=== PATIENT | female | born 1995 | race Two or more races ===

== ENCOUNTER 2024-08-18 11:17 | Outpatient (CLI) | payer MEDICAID, SELFPAY ==
--- NOTE | 2024-08-18 11:30 | CRLHL7_ITS ---
For Patients: As a result of the Century Cures Act, medical imaging exams and procedure reports are released immediately into your electronic medical record. You may view this report before your referring provider. If you have questions, please contact your health care provider. OB ULTRASOUND LESS THAN 14 WEEKS, 08/18/2024 CLINICAL HISTORY: Dating and viability. COMPARISON: None. TECHNIQUE: Real time pringle scale imaging of the fetus was performed transvaginal. FINDINGS: LMP: 06/06/2024. DALY by LMP: 03/13/2025. GA: 10 weeks 3 days. IMAGING: TV. CRL: 1.1 cm, 7 weeks 2 days. FHR: 152 bpm. GEST SAC: 2.1 cm, appears within normal limits. YOLK SAC: 2.4 mm, appears within normal limits. RIGHT OV: 2.7 x 1.4 x 1.8 cm. LEFT OV: 4.3 x 2.3 x 2.3 cm. IMPRESSION: 1. Single living intrauterine measuring 7 weeks 2 days and sonographic due date 04/04/2025. 2. Subchorionic hemorrhage measures 1.3 x 0.5 x 0.5 cm. Anival Bush M.D. Diagnostic Radiologist [email or web address] Transcribed: 12:39 pm DW/Dictated by: Anival Bush MD @ 08/18/2024 12:25:00 PM (Electronically Signed)
== END 2024-08-18 11:18 | disposition home or self-care (01) ==
LOC: US 11:20
PROVIDERS: Visit Provider Advanced Practice Midwife
DX: Z34.91 Encounter for supervision of normal pregnancy, unspecified, first trimester (principal); O20.9 Hemorrhage in early pregnancy, unspecified; Z3A.10 10 weeks gestation of pregnancy
CPT/HCPCS: 76817

== ENCOUNTER 2024-08-18 13:42 | Outpatient (CLI) | payer MEDICAID, SELFPAY | END 2024-08-18 13:43 | disposition home or self-care (01) | PROVIDERS: Visit Provider Advanced Practice Midwife | DX: Z34.81 Encounter for supervision of other normal pregnancy, first trimester (principal); Z67.10 Type A blood, Rh positive | CPT/HCPCS: 83020; 83021; 85660; 86592; 86703; 86704; 86706; 86762; 86787; 86803; 86850; 86900; 86901; 87086; 87340 ==

== ENCOUNTER 2024-09-15 12:13 | Outpatient (CLI) | payer MEDICAID, SELFPAY ==
[2024-09-15 16:29] LABS: Chlamydia DNA Amplified* NOT DETECTED (No Detected); GC DNA Amplified* NOT DETECTED (No Detected)
[2024-09-21 10:32] LABS: HPV Source Cervix; HPV, High Risk by TMA Not Detected
== END 2024-09-15 12:14 | disposition home or self-care (01) ==
PROVIDERS: Visit Provider Obstetrics & Gynecology
DX: Z34.81 Encounter for supervision of other normal pregnancy, first trimester (principal)
CPT/HCPCS: 81511; 87491; 87591; 87624; 87625; 88141; 88142

== ENCOUNTER 2024-10-11 10:32 | Outpatient (CLI) | payer MEDICAID, SELFPAY | END 2024-10-11 10:33 | disposition home or self-care (01) | LOC: NFLDREF 10-14 10:07 | PROVIDERS: Visit Provider Obstetrics & Gynecology | DX: Z34.92 Encounter for supervision of normal pregnancy, unspecified, second trimester (principal); Z3A.15 15 weeks gestation of pregnancy | CPT/HCPCS: 81511 ==

== ENCOUNTER 2024-11-08 11:01 | Outpatient (CLI) | payer MEDICAID, SELFPAY ==
--- NOTE | 2024-11-08 11:15 | CRLHL7_ITS ---
For Patients: As a result of the Century Cures Act, medical imaging exams and procedure reports are released immediately into your electronic medical record. You may view this report before your referring provider. If you have questions, please contact your health care provider. OBSTETRICAL ULTRASOUND ??? ANATOMY SURVEY, 11/08/2024 INDICATION: anatomy survey. CLINICAL HISTORY: DALY by ultrasound: 04/04/2025 Gestational age: 19 weeks 0 days TECHNIQUE: Real-time pringle-scale transabdominal imaging of the fetus was performed. PREVIOUS ULTRASOUND: 08/18/2024 FINDINGS: position: Raymundo breech Cervix: Visualized Technique: Transabdominal Length of closed cervix: 4.1 cm Placenta position: Anterior Technique: Transabdominal Placenta tip to internal os: 4.4 cm Umbilical cord: 3-vessel cord Placental insertion: Eccentric, marginal (within 2 cm of placenta edge) Amniotic fluid: 4.7 cm SDP (greater than/equal to 2 to less than 8 cm) ANATOMY SURVEY: Observed Structures Cerebellum: Yes; 1.8 cm, 19 weeks 0 days Cisterna magna: Yes; 3.6 mm Nuchal fold: Yes; 5.7 mm Lateral ventricle: Yes; 8.6 mm CSP: Yes Midline falx: Yes Choroid plexus: Yes Spine: Suboptimal visualization Stomach: Yes Abdominal cord insert: Yes Urinary bladder: Yes Kidneys: Yes Diaphragm: Yes Nose/lips: Not visualized Orbital view: Yes Profile: Yes Upper extremities: Yes Lower extremities: Yes Hands: Yes Feet: Yes 4-chamber heart: Suboptimal visualization LVOT: Suboptimal visualization RVOT: Suboptimal visualization 3VV: Suboptimal visualization 3VTV: Not visualized BIOMETRY BPD: 4.5 cm, 19 weeks 4 days, 72% HC: 16.7 cm, 19 weeks 3 days, 61% AC: 14.4 cm, 19 weeks 5 days, 71% FL: 3.3 cm, 20 weeks 3 days, 88% FL/AC: 23.09% HC/AC ratio: 1.16 heart rate: 139 bpm age by this ultrasound: 19 weeks 4 days DALY by this ultrasound: 03/31/2025 Estimated weight: 324.50 grams (0 pounds 11 ounces) Percentile by DALY: 93% IMPRESSION: 1) Concordance of clinical and sonographic dating. 2) Incomplete visualization of the heart views, nose, lips and spine due to position. Remainder of the anatomic survey is normal. Short-term follow-up is recommended. ANIVAL HERRERA M.D. Diagnostic Radiologist [email or web address] Transcribed: 3:[address]/Dictated by: Anival Herrera MD @ 11/08/2024 3:01:00 PM (Electronically Signed)
== END 2024-11-08 11:02 | disposition home or self-care (01) ==
LOC: US 11:02
PROVIDERS: Visit Provider Obstetrics & Gynecology
DX: Z34.92 Encounter for supervision of normal pregnancy, unspecified, second trimester (principal); O35.AXX0 Maternal care for other (suspected) fetal abnormality and damage, fetal facial anomalies, not applicable or unspecified; O35.BXX0 Maternal care for other (suspected) fetal abnormality and damage, fetal cardiac anomalies, not applicable or unspecified; O35.FXX0 Maternal care for other (suspected) fetal abnormality and damage, fetal musculoskeletal anomalies of trunk, not applicable or unspecified; Z3A.19 19 weeks gestation of pregnancy
CPT/HCPCS: 76805

== ENCOUNTER 2024-12-06 13:38 | Outpatient (CLI) | payer MEDICAID, SELFPAY ==
--- NOTE | 2024-12-06 13:45 | CRLHL7_ITS ---
For Patients: As a result of the Century Cures Act, medical imaging exams and procedure reports are released immediately into your electronic medical record. You may view this report before your referring provider. If you have questions, please contact your health care provider. OB ULTRASOUND FOLLOW-UP DALY by US: 04/04/2025. GA: 23 w, 0 d. INDICATION: Follow up missing anatomy views. TECHNIQUE: Real time pringle scale imaging of the fetus was performed. Transabdominal. position: Breech. Cervix: Visualized. Technique: Transabdominal. Length of closed cervix: 4.0 cm. Placenta: Anterior. FHR: 147 BPM. Amniotic Fluid: 4.5 cm SDP (greater than/equal to: 2- less than 8 cm). IMPRESSION: 1. Normal heart views, nose, lips and spine. 2. Eccentric placental cord insertion. Anival Bush M.D. Diagnostic Radiologist [email or web address] JR/Dictated by: Anival Bush MD @ 12/07/2024 6:55:00 AM (Electronically Signed)
== END 2024-12-06 13:39 | disposition home or self-care (01) ==
LOC: US 13:39
PROVIDERS: Visit Provider Obstetrics & Gynecology
DX: Z36.89 Encounter for other specified antenatal screening (principal)
CPT/HCPCS: 76816

== ENCOUNTER 2025-01-05 09:09 | Outpatient (CLI) | payer MEDICAID, SELFPAY | END 2025-01-05 09:10 | disposition home or self-care (01) | LOC: NFLDREF 01-10 07:02 | PROVIDERS: Visit Provider Obstetrics & Gynecology | DX: Z34.92 Encounter for supervision of normal pregnancy, unspecified, second trimester (principal) | CPT/HCPCS: 86592 ==

== ENCOUNTER 2025-03-02 13:07 | Outpatient (CLI) | payer MEDICAID, SELFPAY ==
[2025-03-03 12:21] LABS: Strep B DNA Probe Negative (Negative)
[2025-03-03 12:38] LABS: Strep B Susceptibility Needed? No
== END 2025-03-02 13:08 | disposition home or self-care (01) ==
PROVIDERS: Visit Provider Obstetrics & Gynecology
DX: O99.713 Diseases of the skin and subcutaneous tissue complicating pregnancy, third trimester (principal); L29.9 Pruritus, unspecified
CPT/HCPCS: 80053; 82239; 87081; 87653

== ENCOUNTER 2025-03-28 05:43 | Inpatient (IN) | payer MEDICAID, SELFPAY ==
[2025-03-28] VITALS (32 sets, daily range): BP systolic 99–144; BP diastolic 51–93; PULSE 59–110; RESP 16–18; TEMP 36.7–37; O2SAT 94–100; BMI 37.3
[2025-03-28 06:37] LABS: Hematocrit* 35.5 % (33.0-51.0); Hemoglobin* 11.8 gm/dL (12.0-16.0); Immature Granulocytes Abs Auto 0.06 K/uL (0.00-0.30); Immature Granulocytes Pct Auto 0.8 %; Lymphocytes Absolute Auto 1.69 K/uL (0.90-2.90); Mean Corpuscular HGB Conc 33 gm/dL (32-36); Mean Corpuscular Hemoglobin 29 pg (26-34); Mean Corpuscular Volume 89 fL (80-100); RDW Coefficient of Variation % 13.6 % (11.5-15.5); Red Blood Count* 4.01 m/uL (4.00-5.20); White Blood Count* 7.17 K/uL (4.50-11.00)
[2025-03-28 06:41] LABS: Slide Review Reflex No
[2025-03-28] MEDS: LACTATED RINGERS 1000 ML 1,000 ML 1200 ML IV (06:48)
--- NOTE | 2025-03-28 07:00 | W.PM.H&PU ---
History & Physical Update History & Physical Update H&P Reviewed and patient assessed: No changes noted H&P Updates: Ms. Lazcano is seen in pre-op prior to planned scheduled repeat at 39w0d. No interval change to her health history or questions today. We again reviewed the risks, benefits and alternatives to the planned procedure. Written consent was noted to be complete within 30 days, re-signature not required. Post-procedure restrictions and expectations reviewed. Pre-op labs reviewed and are within normal limits. Ancef as perioperative antibiotic.
--- NOTE | 2025-03-28 07:14 | P.OBPRC_ITS ---
Procedure Time Seen by Provider: 08:55 Date of procedure: 03/28/25 Pre-op diagnosis: 39 weeks gestation, history of C/S x2 Post-op diagnosis: same Procedure Done: Global Will [facility] bill your pro fee for this procedure?: Yes Blood Loss Measurement Type: QBL (447) Bakri Used: No IV fluids (mL): 1,600 Urine Output (mL): 300 Urine Output Comment: Yellow, clear Surgeon: Benedict Peterson MD Primary School Teacher Librarian: Dr. Scott Anesthesia Type: Spinal Findings: Moderate adhesive disease of the rectus abdominis fascia and musculature Minimal intraabdominal adhesions Liveborn female Unremarkable uterus, bilateral fallopian tubes and ovaries Procedure Name: Repeat delivery Procedure Description: Twila is a 29y0 at 39w0d GA admitted for scheduled repeat . Patient was taken to the operating room with IV running. She received ancef in preoperative prophylaxis. Spinal anesthesia was administered. Sanchez catheter was inserted. She was prepped and draped in the usual sterile fashion. Anesthesia was tested and found to be adequate. A low-transverse skin incision was made through existing scar with a scalpel and carried through to the underlying layer of fascia with the scalpel. The subcutaneous fat was dissected off the underlying fascia with Bovie. The fascia was nicked in the midline with a scalpel, where adhesions were noted. Care was taken to widen this incision laterally with scissors, where the fascia was noted to be thickened due to scar with some adherence to the underlying muscles. The rectus muscles were in the midline. Peritoneum was identified and entered bluntly. Bovie was used to widen this opening laterally. Benjamín O retractor was inserted and tightened down, providing excellent visualization of the lower uterine segment. The bladder reflection was noted to be well below planned site of hysterotomy, no bladder flap created. Low-transverse uterine incision was made with a scalpel. Incision was widened bluntly. The infant's head was grasped through the hysterotomy and delivered with the help of fundal pressure. Nuchal cord x1 noted, loose and reduced prior to delivery of body. The remainder of the body delivered without incident. Cord was clamped and cut after 30 seconds. Infant was handed off to attending nurses. details: - Liveborn female fetus at 0808 - weight 7lb 2 oz - APGARs were 9 and 9 at 1 and 5 minutes respectively The placenta was delivered with gentle traction on the cord. The uterus was cleaned of all clots and debris with the dry lap pad. The hysterotomy was reapproximated with 0 Vicryl in a running, locked fashion. Second layer of the same suture was used in imbricating fashion to obtain hemostasis. Excellent hemostasis was noted. Uterus was reintroduced to peritoneal cavity. Excellent hemostasis across hysterotomy was again noted. The adnexa were examined and noted to be normal in appearance. The cul-de-sac and gutters were cleansed with dampened laparotomy sponge, removing any further clots and debris. The Benjamín O retractor was removed. Bleeding was noted along the edge of the right rectus abdominis muscles, where a large vein could be seen along the peritoneal edge. Vein was secured with DeBakey where monopolar cautery was utilized to secure hemostasis. Monopolar cautery was utilized to address small bleeding on muscle body itself. The hysterotomy was reexamined and found to be hemostatic. The rectus muscles were sequentially grasped, elevated, examined and made hemostatic with electrocautery as needed. Kaylee was applied at the right superior margin of the fascial/muscle dissection and along the previously bleeding right edge of the rectus muscle. The fascia was reapproximated with 0 Vicryl in a running fashion. Subcutaneous fat was irrigated and Bovie used on oozing vessels. The subcutaneous fat was reapproximated with 2 0 Vicryl suture. The skin was closed with a subcuticular stitch of 3-0 Monocryl. Surgical glue was applied above this. Patient tolerated procedure well was taken to recovery area in stable condition. Complications: None Pathology: none sent Surgery Debrief Performed: Yes Condition: stable Disposition: floor
[2025-03-28] MEDS: CEFAZOLIN 2 GM INJ IVP (07:44)
--- NOTE | 2025-03-28 09:15 | P.ANES_ITS ---
Anesthesia Charges Start Date/Time Anesthesia Start Date: 03/28/25 Anesthesia Start Time: 07:18 Stop Date/Time Anesthesia Stop Date: 03/28/25 Anesthesia Stop Time: 09:11 Coding CPT Codes CPT Codes: ANESTH CS DELIVERY - 90195 ([id number]) QK - MEDIEVAL ENGLISH LITERATURE PROFESSOR 2-4 CNCRNT ANES PROC, QX - TANK SHOP SUPERVISOR SVRadha W/ MED DIRECTION
--- NOTE | 2025-03-28 09:15 | W.ANESCHARGE ---
Anesthesia Charges Start Date/Time Anesthesia Start Date: 03/28/25 Anesthesia Start Time: 07:18 Stop Date/Time Anesthesia Stop Date: 03/28/25 Anesthesia Stop Time: 09:11 Coding CPT Codes CPT Codes: ANESTH CS DELIVERY - 02734 ([id number]) QK - SOUND EFFECTS TECHNICIAN 2-4 CNCRNT ANES PROC, QX - OVERNIGHT HOUSEPERSON SVRadha W/ MED DIRECTION
--- NOTE | 2025-03-28 09:37 | P.ANES_ITS ---
Anesthesia Charges Start Date/Time Anesthesia Start Date: 03/28/25 Anesthesia Start Time: 07:18 Stop Date/Time Anesthesia Stop Date: 03/28/25 Anesthesia Stop Time: 09:11 Coding CPT Codes CPT Codes: ANESTH CS DELIVERY - 21082 ([id number]) QK - HARD CANDY BATCH MIXER 2-4 CNCRNT ANES PROC, QX - DIRECTOR TRIAL SVC W/ MD MED DIRECTION, P2 - PATIENT W/MILD SYST DISEASE
--- NOTE | 2025-03-28 09:37 | W.ANESCHARGE ---
Anesthesia Charges Start Date/Time Anesthesia Start Date: 03/28/25 Anesthesia Start Time: 07:18 Stop Date/Time Anesthesia Stop Date: 03/28/25 Anesthesia Stop Time: 09:11 Coding CPT Codes CPT Codes: ANESTH CS DELIVERY - 34391 ([id number]) QK - BLUE PRINT CONTROL CLERK 2-4 CNCRNT ANES PROC, QX - MUSIC INDUSTRY INTERNSHIP SVC W/ MD MED DIRECTION, P2 - PATIENT W/MILD SYST DISEASE
[2025-03-28 09:53] LABS: Hematocrit* 39.4 % (33.0-51.0); Hemoglobin* 12.8 gm/dL (12.0-16.0); Mean Corpuscular HGB Conc 33 gm/dL (32-36); Mean Corpuscular Hemoglobin 29 pg (26-34); Mean Corpuscular Volume 90 fL (80-100); Red Blood Count* 4.40 m/uL (4.00-5.20); White Blood Count* 10.30 K/uL (4.50-11.00)
[2025-03-28 09:56] LABS: Slide Review Reflex No
[2025-03-28 10:10] LABS: Alanine Aminotransferase* 16 U/L (4-35); Aspartate Amino Transferase* 34 U/L (12-35); Blood Urea Nitrogen* 12 mg/dL (5-24); Creatinine* 0.4 mg/dL (0.5-1.5); Est. Creatinine Clearance* 171.66; Estimated Glomerular Filt Rate 137 ml/min
[2025-03-28 10:14] LABS: Protein Creatinine Ratio Urine 0.75 (0-0.19)
[2025-03-28] MEDS: SODIUM CHLORIDE 0.9 % (FLUSH) 10 ML SYRINGE IVF ×2 (15:28→21:28)
[2025-03-29] VITALS (9 sets, daily range): BP systolic 107–132; BP diastolic 69–87; PULSE 77–88; RESP 16–18; TEMP 36.4–36.8; O2SAT 97–99
[2025-03-29] MEDS: ACETAMINOPHEN 500 MG TABLET 1000 MG PO ×2 (01:22→13:39)
[2025-03-29] MEDS: SIMETHICONE 80 MG TAB.CHEW PO (02:20)
[2025-03-29 06:51] LABS: Hemoglobin* 9.4 gm/dL (12.0-16.0)
--- NOTE | 2025-03-29 08:38 | P.OBPN_ITS ---
OB - PN:Subj Subjective Date Seen: 03/29/25 Patient comments OB post-: no complaints, pain well controlled, tolerating diet and flatus present [place] status: bottle and doing well feeding status: exclusively bottle feeding Narrative: Twila?feels well.??Her?pain is well controlled with current medications.??She has no new complaints.??Urinary output is?adequate?and she is voiding without difficulty.??Has?a good appetite, is tolerating a general diet, is passing flatus, and has?not?had a bowel movement.??Has?scant?amount?of rubra lochia.??She?is ambulating?well.?She is bottle feeding so we reviewed ways to help suppression. Will initiate iron supplement for Hgb of 9.4. Reviewed risk for constipation and she will take scheduled stool softener. Blood pressures have been WNL since delivery. OB - PN: Obj Exam Physical Exam: Vital signs: Temp Pulse Resp BP Pulse Ox O2 Del Method 98.1 F 83 16 128/84 97 Room Air 03/28/25 19:45 03/29/25 04:30 03/29/25 05:25 03/29/25 04:30 03/29/25 04:30 03/29/25 04:30 Narrative: GENERAL APPEARANCE:? normal?affect, alert, no distress? MOOD:? appropriate? CHEST:? clear?to auscultation and percussion? HEART:? regular?rate and rhythm? BREASTS: soft, nontender, no erythema ABDOMEN:? soft, non-tender?the uterine?fundus is?U/2?and is?appropriate for?the stage of recovery.?Incision dressing clean, dry and intact.? EXTREMITIES:? normal?and no edema? OB - PN: Obj Data Labs Labs: Laboratory Results - last 24 hr 03/28/25 03/28/25 03/29/25 09:30 09:40 06:40 WBC 10.30 RBC 4.40 Hgb 12.8 9.4 L Hct 39.4 MCV 90 MCH 29 MCHC 33 Plt Count 220 BUN 12 Creatinine 0.4 L Estimated Creat Clear 171.66 Estimated GFR 137 AST 34 ALT 16 Urine Creatinine 41.6 Protein/Creatinin Ratio 0.75 H Urine Total Protein 31 OB - PN: A/P Delivery Assessment and Plan (1) care following delivery: Status: Acute (2) Pre-eclampsia: Problem details: Dx day of C/S, normal labs Status: Acute (3) suppression: Status: Acute Plan day: 1 Plan: routine care Comments: Anticipate discharge home tomorrow or the following day per patient preference.
[2025-03-29] MEDS: DOCUSATE SODIUM 100 MG CAPSULE PO (08:43)
[2025-03-29] MEDS: FERROUS SULFATE 325 MG TABLET PO (09:59)
[2025-03-29] MEDS: IBUPROFEN 600 MG TABLET PO ×2 (18:09→23:55)
[2025-03-30 05:47] VITALS: BP 128/83; PULSE 73; RESP 15; TEMP 36.6; O2SAT 99
[2025-03-30] MEDS: IBUPROFEN 600 MG TABLET PO (05:57)
--- NOTE | 2025-03-30 07:26 | PM.OBDSVD1 ---
DS: Providers Provider Date Seen: 03/30/25 Date of admission: 03/28/25 05:43 Primary care physician: Not a Local Provider Admitting Clinician: Talya Peterson MD Attending Physician on discharge: Simone FITZPATRICK Date of Discharge: 03/30/25 DS: Diagnosis Discharge Diagnosis (1) care following delivery: Status: Acute Problem details: bottle feeding and pumping (2) Anemia due to acute blood loss: Status: Acute Exam Narrative: Exam Narrative: GENERAL APPEARANCE:? normal affect, alert, no distress MOOD:? appropriate CHEST:? clear to auscultation HEART:? regular rate and rhythm ABDOMEN:? soft, non-tender the uterine fundus is At Umbilicus, Midline and is appropriate for the stage of recovery. EXTREMITIES:? normal and minimal edema INCISION: Surgical dressing clean dry and intact. Const: Vital Signs, click to edit/add: Vital Signs - 24 hr 03/29/25 08:00 03/29/25 13:00 03/29/25 17:00 Temperature 98.1 F 98.0 F 98.2 F Pulse Rate [Pulse Oximeter] 81 79 82 Respiratory Rate 16 16 16 Blood Pressure [Le ft Arm] 107/69 110/71 132/87 Pulse Oximetry 97 98 99 Oxygen Delivery Me thod Room Air Room Air Room Air 03/29/25 19:42 03/29/25 23:56 03/30/25 05:47 Temperature 98.1 F 97.6 F 97.9 F Pulse Rate [Pulse Oximeter] 88 77 73 Respiratory Rate 18 18 15 Blood Pressure [Le ft Arm] 117/77 128/84 128/83 Pulse Oximetry 98 98 99 Oxygen Delivery Me thod Room Air Room Air Room Air OB - DS: Summary Hospital Course Hospital Course: Twila is a 29]?y.o. G 3 P3003] who was admitted to [facility] for a scheduled repeat .??She had a section that was uncomplicated with preeclamsia diagnosed PP with normal labs except a PCR of 0.75. She has been normotensive since 03/28/25 at 0651. The patient feels well.??The pain is well controlled with current medications.??She has no new complaints.??She is bottle?feeding?and reports things are going well, but she plans to start pumping once home and giving pumped milk to the baby.. the patient has done well.??Vitals have been stable.??She has?remained?afebrile.??Has a good appetite,?is?tolerating a general diet.??She is voiding without difficulty.??She is passing gas and has had a bowel movement.??She is ambulating and denies any dizziness.??Has?small?amount of rubra lochia. She is planning [place] for prevention.? ?? Problems: Pre e without severe features, anemia ?? plan:? Discharge?home with baby.? Initiate iron every other day Follow up in 2 weeks for incision check and?6 weeks.? Bottlefeeding and pumping, may see if needed? Hgb 9.4. Iron supplement ordered orally every other day? Pre-E without severe features diagnosed by elevated BP greater than 4 hours apart? Labs stable Discharge?home with BP cuff if does not already have one Follow up in 3-5 days?for BP check Call for signs/symptoms of preeclampsia? Peripartum Data Infant delivery method: Repeat Section Episiotomy description: None Procedures: Procedures Operation Date: 03/28/25 07:15 Actual Procedure Side Surgeon p Repeat Section Not Applicable Talya Peterson MD complications: other (Pre-e without severe features) Gender: Female Infant Discharge Plan: Home Status at Discharge Functional status at discharge: independent ambulation Overall status at discharge: patient is progressing back to baseline Time Spent with Patient Time attestation: Total time spent providing and/or coordinating discharge services: Time spent: Less than 30 minutes Discharge Plan Discharge Disposition: Home, Self-Care Date of Admission: 03/28/25 05:43 Attending Provider on Discharge: Lacy oHwe Primary Care Provider: Provider,Not a Local Condition: Stable Anticipated Discharge Date/Time: 03/30/25 07:37 Discharge Medications: New ferrous sulfate 325 mg (65 mg iron) Tablet 325 mg PO Q48H Qty: 60 0RF docusate sodium 100 mg Capsule 100 mg PO DAILY Qty: 60 0RF ibuprofen 600 mg Tablet 600 mg PO Q6H PRN (Reason: Pain) Qty: 60 0RF oxycodone 5 mg Tablet 5 - 10 mg PO Q4H PRN (Reason: Pain) Qty: 10 0RF Continued One-A-Day 400 mcg- 25 mg tablet,chewable 2 tab PO Discharge Orders: Discharge Order (Routine); Ordered 03/30/25 Ordered By: Lacy Howe Patient Education: Bupivacaine Liposome (By injection), OB Over the Counter Medication Information, OB /Bottle Feeding, OB /Breast Feeding Additional Instructions: Discharge instructions were reviewed with the patient including signs and symptoms of infection and home going medications Lifting Restrictions: 20 pounds for 6 weeks No not submerge incision under water X 2 weeks? Nothing vaginally for 6 weeks: no tampons or intercourse Do not drive while taking narcotic pain medication(s) Off Work or School for 8 weeks Symptoms to report to doctor: Bleeding that saturates more than one pad per hour Passing clots larger than the size of a golf ball Pain not relieved by prescribed medication Fever above 100.4 degrees Fahrenheit A foul vaginal odor Difficulty in emotions, mood, and functions Thoughts of hurting yourself and/or Painful, reddened area in your breast Any drainage, redness, or tenderness in your IV/epidural site Severe headache that doesn't improve after taking medications Changes in vision, including temporary loss of vision, blurred vision, and/or light sensitivity Upper abdominal pain (usually under ribs on the right side) Decrease in urination or painful, frequent urinating Chest pain Shortness of breath Tenderness or pain with redness and/swelling in the calf(s) of your leg Follow Up in the [facility] for a BP check 04/03/2025, please call the [facility] to Schedule. Call with BP greater than or equal to 140/90 2-week visit: incision check, discuss infant feeding concerns, review control options and screen for anxiety/depression. 6-week visit for an annual exam. consultation services are available to all mothers and babies for the first year after delivery.? To make an appointment, please call [phone]. Activity Level: No strenuous activity and Light activity Discharge Diet: Regular Follow Up Appointments: [facility] [Provider Group] Forms: Orderlord Info Instructions
[2025-03-30 08:11] VITALS: BP 134/84; PULSE 91; RESP 15; O2SAT 100
== END 2025-03-30 10:21 | disposition home or self-care (01) | DRG 787 ==
PROVIDERS: Admitting Provider Obstetrics & Gynecology; Visit Provider Obstetrics & Gynecology
PROC: 10D00Z1 Extraction of Products of Conception, Low, Open Approach (ICD-10-PCS; CPT 59514; principal; 2025-03-28 07:15)
DX: O34.211 Maternal care for low transverse scar from previous cesarean delivery (principal); D62 Acute posthemorrhagic anemia; O13.4 Gestational [pregnancy-induced] hypertension without significant proteinuria, complicating childbirth; O14.05 Mild to moderate pre-eclampsia, complicating the puerperium; O90.81 Anemia of the puerperium; Z3A.39 39 weeks gestation of pregnancy; Z37.0 Single live birth
CPT/HCPCS: 01961; 36415; 51798; 82565; 82570; 84156; 84450; 84460; 84520; 85018; 85025; 85027; 86592; 86850; 86900; 86901; A4314; A9270; J0665; J0666; J0690; J1100; J1885; J2274; J2405; J2590; J3010; J3490; J7120

== ENCOUNTER 2025-04-04 12:22 | Outpatient (CLI) | payer MEDICAID, SELFPAY | END 2025-04-04 12:23 | disposition home or self-care (01) | PROVIDERS: Visit Provider Obstetrics & Gynecology | DX: O14.93 Unspecified pre-eclampsia, third trimester (principal) | CPT/HCPCS: 82565; 84450; 84460; 84520 ==

== ENCOUNTER 2025-04-06 09:34 | Outpatient (CLI) | payer MEDICAID, SELFPAY | END 2025-04-06 09:35 | disposition home or self-care (01) | LOC: NFLDREF 04-12 04:22 | PROVIDERS: Visit Provider Physician Assistant | DX: R79.89 Other specified abnormal findings of blood chemistry (principal); Z39.2 Encounter for routine postpartum follow-up | CPT/HCPCS: 82565; 84450; 84460; 84520; 84550 ==